=== PATIENT | male | born 1945 | race Asian ===

== ENCOUNTER 2019-05-13 13:18 | Emergency (ER) | payer MEDICAID, OTHER ==
[~2019-05-13] VITALS: Ht 165.1 cm; Wt 72.7 kg
[~2019-05-13 13:18] MED LIST: AMLO-147 PO; ASPI-831 PO; ATOR40TA68 PO; HUM100VI13 SQ
--- NOTE | 2019-05-13 14:00 | ERD ---
ER Documentation Chief Complaint Chief Complaint HPI 74-year-old male presents for evaluation of chest pain. He states that he has b een feeling exertional shortness of breath for about the last 2 weeks, which is been intermittent, dull, improved by sitting down and laying still. Today he says his primary care doctor and endorses chest pain, and thus he was referred to the ED. In route he received 160 mg of aspirin and also a dose of nitroglycerin. In December 2018, he had an admission at [facility], where he was evaluated by Dr. Tapia, he had a Lexiscan performed which showed no evidence of acute ischemic disease, but it did show scarring. He does endorse constipation for the last 4 days, but otherwise he has not had a fever, and no abdominal pain. ROS All systems reviewed and are negative except as per history of present illness. Medications Home Meds Active Scripts Amlodipine Besylate* (Amlodipine Besylate*) 10 Mg Tablet, 10 MG PO DAILY, #30 TAB Prov:SORAYA GUZMAN MD 12/20/18 Insulin NPH Hum/Reg Insulin Hm (Relion Novolin 70-30 Vial) 100 Unit/1 Ml Vial, 20 UNIT SQ BID WITH MEALS, #30 VIAL Prov:SORAYA GUZMAN MD 12/20/18 Aspirin (Aspirin) 81 Mg Chew, 81 MG PO DAILY, #90 TAB Prov:SORAYA GUZMAN MD 12/20/18 Atorvastatin* (Atorvastatin*) 40 Mg Tablet, 40 MG PO HS, #90 TAB Prov:SORAYA GUZMAN MD 12/20/18 Allergies Allergies: Coded Allergies: No Known Allergy (Unverified , 05/13/19) PMhx/Soc History of Surgery: Yes Anesthesia Reaction: No Hx Neurological Disorder: No Hx Respiratory Disorders: No Hx Cardiac Disorders: Yes Hx Psychiatric Problems: No Hx Miscellaneous Medical Probl: Yes (DM , HTN , [place]) Hx Alcohol Use: No Hx Substance Use: No Hx Tobacco Use: No Physical Exam Physical Exam Const: No acute distress Head: Atraumatic Eyes: Normal Conjunctiva ENT: Normal External Ears, Nose and Mouth. Neck: Full range of motion. No meningismus. Resp: Clear to auscultation bilaterally, no wheezes rales or rhonchi Cardio: Regular rate and rhythm, no murmurs, no evidence of JVD Abd: Soft, non tender, non distended, no rebound or guarding.. Normal bowel sounds Skin: No petechiae or rashes Back: No midline or flank tenderness Ext: No cyanosis, no no pitting pitting edema noted in the legs Neur: Awake and alert Psych: Normal Mood and Affect Result Diagram: 05/13/19 1407 05/13/19 1407 Results 24 hrs Laboratory Tests Test 05/13/19 14:07 White Blood Count 10.4 10^3/ul Red Blood Count 4.29 10^6/ul Hemoglobin 12.3 g/dl Hematocrit 36.9 % Mean Corpuscular Volume 86.0 fl Mean Corpuscular Hemoglobin 28.7 pg Mean Corpuscular Hemoglobin Concent 33.3 g/dl Red Cell Distribution Width 12.2 % Platelet Count 201 10^3/UL Mean Platelet Volume 10.1 fl Immature Granulocytes % 0.300 % Neutrophils % 54.5 % Lymphocytes % 33.6 % Monocytes % 8.5 % Eosinophils % 2.7 % Basophils % 0.4 % Nucleated Red Blood Cells % 0.0 /100WBC Immature Granulocytes # 0.030 10^3/ul Neutrophils # 5.7 10^3/ul Lymphocytes # 3.5 10^3/ul Monocytes # 0.9 10^3/ul Eosinophils # 0.3 10^3/ul Basophils # 0.0 10^3/ul Nucleated Red Blood Cells # 0.0 10^3/ul Sodium Level 141 mmol/L Potassium Level 4.2 mmol/L Chloride Level 105 mmol/L Carbon Dioxide Level 25 mmol/L Anion Gap 11 Blood Urea Nitrogen 21 mg/dl Creatinine 1.29 mg/dl Est Glomerular Filtrat Rate mL/min mL/min Glucose Level 134 mg/dl Calcium Level 8.9 mg/dl Total Bilirubin 0.5 mg/dl Direct Bilirubin 0.00 mg/dl Indirect Bilirubin 0.5 mg/dl Aspartate Amino Transf (AST/SGOT) 26 IU/L Alanine Aminotransferase (ALT/SGPT) 31 IU/L Alkaline Phosphatase 100 IU/L Troponin I < 0.012 ng/ml Total Protein 7.8 g/dl Albumin 4.1 g/dl Globulin 3.70 g/dl Albumin/Globulin Ratio 1.10 Lipase 174 U/L Current Medications Medications Dose Sig/Alli Start Time Status Last (Trade) Ordered Route PRN Stop Time Admin Dose Reason Admin Aspirin 162 mg ONCE ONCE 05/13/19 DC (Aspirin) PO 14:30 05/13/19 14:31 Procedures/MDM This is a 74-year-old male who presents for evaluation of chest pain, with a strong history of coronary disease. Patie in order to have further cardiac evaluation as an outpatient. Nt's pain had improved by the time he arrived, he was given a complete dose of aspirin. Primary concern was for acute coronary syndrome, given his risk factors his EKG showed Q waves inferiorly, but no new changes. Given that he is a high risk patient, I recommend patient be admitted, and I spoke with Dr. Tapia for a cardiology consult, who will plan on seeing the patient tomorrow. However the patient and his son, both did not want to be admitted to the hospital, I explained to them that we could not completely rule out coronary artery disease, in the ED, they did understood that the risk of leaving was permanent disability and worsening of symptoms, the alternat beatrice offered was that the patient was to follow-up with his primary care doctor tomorrow. We left a message at the primary care clinic, in order to help expedite follow-up. I encouraged the patient and his son both to return if the patient has any worsening chest pain, or if he change his mind and wishes to be admitted. At discharge the patient was in no distress. EKG: Rate/Rhythm: Normal Sinus Rhythm QRS, ST, T-waves: Q waves noted inferiorly, no changes consistent w/ acute ischemia Impression: Q waves inferiorly, consistent with prior ischemia, no significant changes when compared to EKG of December 2018 Departure Diagnosis: Primary Impression: Chest pain Chest pain type: unspecified Qualified Codes: R07.9 - Chest pain, unspecified Additional Impressions: History of coronary artery disease Diabetes Diabetes mellitus type: other specified (including ISSA) Diabetes mellitus detention insulin use: with terminal carman use Diabetes mellitus complication status: without complication Qualified Codes: E13.9 - Other specified diabetes mellitus without complications; Z79.4 - halfway (current) use of insulin Hypertension Hypertension type: unspecified Qualified Codes: I10 - Essential (primary) hypertension Condition: RAY Blankenship MD May 13, 2019 13:59
[2019-05-13] MEDS ORDERED: ASPIRIN 81 MG TAB PO ONE (14:30)
[2019-05-13] MEDS ORDERED: AMLO-147 PO (14:59)
[2019-05-13] MEDS ORDERED: ASPI-817 PO (15:00)
[2019-05-13] MEDS ORDERED: ATOR40TA68 PO (15:00)
[2019-05-13] MEDS ORDERED: NPH,100V SQ (15:06)
[2019-05-13] MEDS ORDERED: TAMS-14 PO (15:07)
[2019-05-13] MEDS ORDERED: DOCU-144 PO (15:11)
[2019-05-13] MEDS ORDERED: INSU100C SQ (15:11)
[2019-05-13 15:28] VITALS: BP 145/70; PULSE 56; RESP 18; Ht 165.1 cm; Wt 72.7 kg
== END 2019-05-13 15:33 | disposition home or self-care (01) ==
LOC: E/R 13:18
DX: E13.9 Other specified diabetes mellitus without complications (principal); I10 Essential (primary) hypertension; I25.2 Old myocardial infarction; I25.10 Atherosclerotic heart disease of native coronary artery without angina pectoris; Z79.82 Long term (current) use of aspirin
CPT/HCPCS: 71045; 80053; 83690; 84484; 85025; 93005; Z7502; Z7610